=== PATIENT | male | born 1985 ===

== ENCOUNTER 2019-11-01 14:44 | Emergency (ER) | payer OTHER ==
[~2019-11-01] VITALS: Ht 170.2 cm; Wt 102.1 kg
[2019-11-01] MEDS ORDERED: IBU600 MG (15:09)
== END 2019-11-01 17:48 | disposition home or self-care (01) ==
LOC: ER 14:44
DX: S61.210A Laceration without foreign body of right index finger without damage to nail, initial encounter (principal); S61.216A Laceration without foreign body of right little finger without damage to nail, initial encounter; S61.212A Laceration without foreign body of right middle finger without damage to nail, initial encounter; S61.214A Laceration without foreign body of right ring finger without damage to nail, initial encounter; W45.8XXA Other foreign body or object entering through skin, initial encounter; Y93.89 Activity, other specified; Y92.69 Other specified industrial and construction area as the place of occurrence of the external cause; Y99.8 Other external cause status